=== PATIENT | male | born 1995 | race Two or more races ===

== ENCOUNTER 2020-11-07 05:46 | Emergency (ER) | payer OTHER ==
[~2020-11-07] VITALS: Ht 162.6 cm; Wt 56.7 kg
== END 2020-11-07 08:43 | disposition home or self-care (01) ==
LOC: ER 05:46
DX: R00.2 Palpitations (principal); I49.8 Other specified cardiac arrhythmias

== ENCOUNTER → 2020-11-15 | Emergency (ER) | payer OTHER ==
[~2020-11-15] VITALS: Ht 162.6 cm; Wt 54.4 kg
== END ==
LOC: ER 04:01
DX: R00.2 Palpitations (principal)